=== PATIENT | male | born 1950 | race Caucasian/White ===

== ENCOUNTER → 2018-10-17 | Outpatient (CLI) | payer OTHER, MEDICARE | LOC: BHCLAF 11:00 | PROVIDERS: ATTEND Internal Medicine Cardiovascular Disease | DX: I48.91 Unspecified atrial fibrillation (principal); E03.9 Hypothyroidism, unspecified | CPT/HCPCS: 36415-PO; 84481-90; 93005-PO ==

== ENCOUNTER → 2018-11-03 | Outpatient (CLI) | payer OTHER, MEDICARE | LOC: BHCLAF 14:00 | PROVIDERS: ATTEND Internal Medicine Cardiovascular Disease | DX: I48.91 Unspecified atrial fibrillation (principal) | CPT/HCPCS: 93306-PO ==

== ENCOUNTER 2018-11-08 06:21 | Day surgery (SDC) | payer OTHER, MEDICARE ==
[2018-11-08] MEDS ORDERED: NS 500 ML IV ONE (06:32)
[2018-11-08] MEDS ORDERED: fentaNYL 100 MCG/2 ML INJ IVP ONE (06:32)
[2018-11-08] MEDS ORDERED: BENZOCAINE UNIT DOSE SPRAY HURRICAINE MM ONE (06:32)
[2018-11-08] MEDS ORDERED: MIDAZOLAM 2 MG/2 ML VIAL IVP ONE (06:32)
[2018-11-08] MEDS ORDERED: ATROPINE SULFATE 1 MG/10 ML SYR IVP ONE (06:32)
[2018-11-08 07:03] LABS: INR 2.95 (0.83-1.16); PROTIME(PATIENT) 30.6 SEC (12.0-15.0)
--- NOTE | 2018-11-08 07:56 | PDHPUP ---
History & Physical Update H&P update statement: This history and physical update is based on an assessment of the patient which was completed after admission or registration (within 24 hours), but prior to the surgery/procedure. H&P update: H&P reviewed & patient examined, no change in patient's condition since H&P completed
[2018-11-08] MEDS ORDERED: LIDOCAINE 2% 100 MG/5 ML SYR ONE (08:59)
[2018-11-08] MEDS ORDERED: PROPOFOL 200 MG/20 ML VIAL ONE (08:59)
--- NOTE | 2018-11-08 08:59 | PDANEPAE ---
ANE Past Medical History - Cardiovascular History Hx Hypertension: No Hx Arrhythmias: Yes Hx Chest Pain: No Hx Coronary Artery / Peripheral Vascular Disease: No Hx CHF / Valvular Disease: No Hx Palpitations: Yes Cardiovascular History Comment: cardiomyopathy - Pulmonary History Hx COPD: No Hx Asthma/Reactive Airway Disease: No Hx Recent Upper Respiratory Infection: No Hx Oxygen in Use at Home: No Hx Sleep Apnea: No - Endocrine History Hx Diabetes: No Hypothyroid: Yes Hyperthyroid: No Obesity: no Endocrine History Comment: overwieight ANE Review of Systems Review of Systems: - Exercise capacity Exercise capacity: >=4 METS ANE Patient History - Allergies Allergies/Adverse Reactions: No Known Allergies Allergy (Unverified 11/08/18 06:12) - Home Medications Home Medications: Apixaban [Eliquis] 5 mg PO BID 11/08/18 [Last Taken Unknown] Aspirin EC [Aspirin EC 81 mg (*)] 81 mg PO DAILY 11/08/18 [Last Taken Unknown] Cholecalciferol (Vitamin D3) [Vitamin D3] 2,000 iunits 11/08/18 [Last Taken 05:00] Levothyroxine [Synthroid 25 mcg (*)] 25 mcg PO DAILY06 11/08/18 [Last Taken 05:00] Probenecid [Probenecid 500mg (*)] 11/08/18 [Last Taken 11/08/18 06:00] Rivaroxaban [Xarelto] 20 mg 11/08/18 [Last Taken 11/07/18 18:00] Vardenafil HCl [Levitra] 20 mg PO 11/08/18 [Last Taken Unknown] - Anes Hx Anes Hx: no prior problems - Smoking Hx Smoking Status: Former smoker - Alcohol Use Alcohol Use: Occasionally - Family Anes Hx Family Anes Hx: neg - N/A ANE Labs/Vital Signs - Labs Result Diagrams: 11/08/18 06:45 - Vital Signs Height: 175.26 cm Weight: 83.915 kg ANE Physical Exam - Airway Neck exam: FROM Mallampati Score: Class 2 Mouth exam: normal dental/mouth exam - Pulmonary Pulmonary: no respiratory distress, no rales or rhonchi, clear to auscultation - Cardiovascular Cardiovascular: irregularly irregular - ASA Status ASA Status: III ANE Anesthesia Plan Anesthesia Plan: MAC Total IV Anesthesia: Yes Urgent/Emergent Case: Anes eval completed preop but documented later for safe timely pt care
[2018-11-08] MEDS ORDERED: ATROPINE SULFATE 1 MG/10 ML SYR ONE (09:10)
--- NOTE | 2018-11-08 09:20 | PDTEE1 ---
SHARA Cardioversion Procedure Procedure: electrical cardioversion Indications: atrial fibrillation Consent: signed and in chart Anticoagulation: xarelto Procedural Details: Pads were placed in anterior-posterior position. SHARA probe was advanced and standard images obtained. There is no evidence of left atrial or left atrial appendage thrombus. Synchronized cardioversion attempt #1: 200J Synchronized cardioversion attempt #2: 200J Synchronized cardioversion attempt #3: 300J Results: normal sinus rhythm Conclusions: successful SHARA cardioversion
--- NOTE | 2018-11-08 09:31 | POSTANESTH ---
Post Anesthetic Evaluation Cardiovascular Status: Normal, Stable Respiratory Status: Normal, Stable Level of Consciousness/Mental Status: Can Participate in Eval Pain Control: Adequate, Prn Tx Ordered Nausea/Vomiting Control: Adequate, Prn Tx Ordered Complications Possibly Related to Anesthesia: None Noted
[2018-11-08] MEDS ORDERED: METOPROLOL SUCCINATE XR 25 MG TAB PO SCH (10:30)
--- NOTE | 2018-11-08 11:45 | CPEKG ---
Test Reason : OPEN Blood Pressure : / mmHG Vent. Rate : 075 BPM Atrial Rate : 076 BPM P-R Int : 169 ms QRS Dur : 093 ms QT Int : 405 ms P-R-T Axes : 065 065 030 degrees QTc Int : 453 ms Sinus rhythm Low voltage, extremity leads Nonspecific T abnrm, anterolateral leads Confirmed by Dae Snow ([id number]) on 11/08/2018 11:45:13 AM Referred By: Sanya George Confirmed By:Dae Snow
--- NOTE | 2018-11-08 11:47 | CPEKG ---
Test Reason : OPEN Blood Pressure : / mmHG Vent. Rate : 144 BPM Atrial Rate : 216 BPM P-R Int : 186 ms QRS Dur : 090 ms QT Int : 339 ms P-R-T Axes : 076 074 004 degrees QTc Int : 525 ms Atrial fibrillation Low voltage, extremity leads Prolonged QT interval Confirmed by Dae Snow ([id number]) on 11/08/2018 11:47:10 AM Referred By: Sanya George Confirmed By:Dae Snow
--- NOTE | 2018-11-08 12:00 | ECHO ---
[email or web address] [address] Main: [phone] Fax: Transesophageal Echocardiography Name: SHIRA MCMAHON MR#: [id number] Study Date: 11/08/2018 Study Time: 07:53 AM Date of : 1950 Age: 68 year(s) Height: ( ) Weight: ( ) BSA: Gender: Male Examination: SHARA Indication: pre-cardioversion Image Quality: Adequate Contrast: Requested by: Sanya George Heart Rate: Rhythm: BP: / Procedure Staff Research Animal Attendant: Kathy Owens [facility] Reading Physician: Sanya George MD Requesting Provider: SHARA Exam Details Conclusions: The patient was in atrial fibrillation at the time of the study. Normal size left ventricle. Severely reduced systolic LV function. EF is estimated at 20%. Left atrial enlargement. Small left to right shunt across the interatrial septum noted with color flow Doppler. No thrombus in left appendage. There is mild thickening of the mitral valve leaflets. Moderate mitral valve regurgitation is present. Mild to moderate tricuspid valve regurgitation. Measurements: Chambers Valvular Assessment AV/MV Valvular Assessment TV/PV Normal Normal Normal Name Value Range Name Value Range Name Value Range Visual EF: 20 % Additional Measurements: Findings: Left Ventricle: The patient was in atrial fibrillation at the time of the study. Normal size left ventricle. Severely reduced systolic LV function. The ejection fraction is visually estimated to be 20 %. Left Atrium: Patient: SHIRA MCMAHON Study Date: 11/08/2018 Page 1 of 2 07:53 AM Left atrial enlargement. Small left to right shunt across the interatrial septum noted with color flow Doppler. Left Atrial Appendage: No thrombus in left appendage. Right Atrium: Right atrial enlargement. Mitral Valve: There is mild thickening of the mitral valve leaflets. Moderate mitral valve regurgitation is present. Aortic Valve: The aortic valve is tri-leaflet. There is no aortic valve regurgitation. Tricuspid Valve: Mild to moderate tricuspid valve regurgitation. Pulmonic Valve: Trivial pulmonic valve regurgitation. Pericardium: No pericardial effusion. l1n (No Signature Object) Patient: SHIRA MCMAHON Study Date: 11/08/2018 Page 2 of 2 07:53 AM [id number]
== END 2018-11-08 10:47 | disposition home or self-care (01) ==
LOC: FCATH 06:21
PROVIDERS: ATTEND Internal Medicine Cardiovascular Disease
PROC: 5A2204Z Restoration of Cardiac Rhythm, Single (ICD-10-PCS; principal; 2018-11-08)
DX: I48.91 Unspecified atrial fibrillation (principal)
CPT/HCPCS: J0461; J2001; J2704

== ENCOUNTER 2018-12-18 06:48 | Inpatient (IN) | payer OTHER, MEDICARE ==
[2018-12-18] MEDS ORDERED: fentaNYL 100 MCG/2 ML INJ IVP ONE (06:50)
[2018-12-18] MEDS ORDERED: MIDAZOLAM 2 MG/2 ML VIAL IVP ONE (06:50)
[2018-12-18] MEDS ORDERED: NS 500 ML IV ONE (06:50)
[2018-12-18] MEDS ORDERED: ATROPINE SULFATE 1 MG/10 ML SYR IVP ONE (06:50)
[2018-12-18] MEDS ORDERED: BENZOCAINE UNIT DOSE SPRAY HURRICAINE MM ONE (06:50)
[2018-12-18 07:36] LABS: INR 2.02 (0.83-1.16); PROTIME(PATIENT) 21.9 SEC (12.0-15.0)
[2018-12-18] MEDS ORDERED: PROPOFOL 200 MG/20 ML VIAL ONE (08:14)
--- NOTE | 2018-12-18 08:32 | PDANEPAE ---
ANE History of Present Illness a fib for CV ANE Past Medical History - Cardiovascular History Hx Hypertension: No Hx Arrhythmias: Yes Hx Chest Pain: No Hx Coronary Artery / Peripheral Vascular Disease: No Hx CHF / Valvular Disease: No Hx Palpitations: Yes Cardiovascular History Comment: cardiomyopathy - Pulmonary History Hx COPD: No Hx Asthma/Reactive Airway Disease: No Hx Recent Upper Respiratory Infection: No Hx Oxygen in Use at Home: No Hx Sleep Apnea: No - Endocrine History Hx Diabetes: No Endocrine History Comment: overwieight ANE Review of Systems Review of Systems: ANE Patient History - Allergies Allergies/Adverse Reactions: No Known Allergies Allergy (Unverified 11/08/18 06:12) - Home Medications Home Medications: Cholecalciferol (Vitamin D3) [Vitamin D3] 2,000 iunits PO DAILY 11/08/18 [Last Taken 12/17/18] Levothyroxine [Synthroid 25 mcg (*)] 25 mcg PO DAILY06 11/08/18 [Last Taken ] Probenecid [Probenecid 500mg (*)] 500 mg PO DAILY 11/08/18 [Last Taken 12/17/18] Rivaroxaban [Xarelto] 20 mg PO DAILY 11/08/18 [Last Taken 12/17/18 19:00] Vardenafil HCl [Levitra] 10 mg PO PRN PRN 11/08/18 [Last Taken Unknown] Metoprolol Succinate Xr [Toprol Xl 50 mg (*)] 50 mg PO DAILY 12/18/18 [Last Taken 12/17/18] - Smoking Hx Smoking Status: Former smoker ANE Labs/Vital Signs - Labs Result Diagrams: 12/18/18 07:00 - Vital Signs Height: 175.26 cm Weight: 83.915 kg ANE Physical Exam - Airway Neck exam: FROM Mallampati Score: Class 2 Mouth exam: normal dental/mouth exam - Pulmonary Pulmonary: no respiratory distress - Cardiovascular Cardiovascular: regular rate and rhythym - ASA Status ASA Status: II ANE Anesthesia Plan Anesthesia Plan: GA with mask
[2018-12-18] MEDS ORDERED: VARDENAFIL HCL PO PRN (08:46)
[2018-12-18] MEDS ORDERED: LIDOCAINE/PRILOCAINE 1 EACH CRTUBE TP ONE (08:51)
--- NOTE | 2018-12-18 09:05 | PDCARD ---
Cardioversion Procedure Procedure: electrical cardioversion Indications: atrial fibrillation, cardiomyopathy Consent: signed and in chart Anticoagulation: xarelto Procedural Details: Pads were placed in anterior-posterior position. Synchronized cardioversion attempt #1: 200J Synchronized cardioversion attempt #2: 360J Results: other Conclusions: other (Unsuccessful cardioversion attempt. Patient will be admitted for initiating dofetilide and repeat cardioversion is planned on Tuesday.) Patient Problems: Problems Problem Status Onset Atrial fibrillation Acute
[2018-12-18] MEDS: DOFETILIDE 0.25 MG CAP PO SCH ×2 (09:19→20:42)
--- NOTE | 2018-12-18 09:51 | POSTANESTH ---
Post Anesthetic Evaluation Cardiovascular Status: Normal, Stable Respiratory Status: Normal, Stable Level of Consciousness/Mental Status: Can Participate in Eval, Alert and Oriented Pain Control: Adequate, Prn Tx Ordered Nausea/Vomiting Control: Adequate, Prn Tx Ordered Complications Possibly Related to Anesthesia: None Noted
--- NOTE | 2018-12-18 11:13 | PDMN ---
Medical Necessity Medical necessity: Pt meets IP criteria as of 12/18/2018 per and LINDSE[facility] M-505 ( Afib); est los > 2 mn for tikosyn loading s/p unsuccessful cardioversion for Afib.
[2018-12-18] MEDS ORDERED: METOPROLOL SUCCINATE XR 50 MG TAB PO SCH (11:30)
[2018-12-18] MEDS: CHOLECALCIFEROL VIT D3 2,000 UNITS TAB/CAP PO SCH (13:02)
[2018-12-18] MEDS: PROBENECID 500 MG TAB PO SCH (13:03)
[2018-12-18] MEDS: LEVOTHYROXINE 25 MCG TAB PO SCH (13:03)
[2018-12-18] MEDS: RIVAROXABAN 20 MG TAB PO SCH (17:47)
[2018-12-18] MEDS: METOPROLOL SUCCINATE XR 50 MG TAB PO SCH (17:48)
[2018-12-19] MEDS ORDERED: LEVOTHYROXINE 25 MCG TAB PO SCH (06:00)
[2018-12-19] MEDS: LEVOTHYROXINE 25 MCG TAB PO SCH (06:34)
--- NOTE | 2018-12-19 08:54 | PDCARPN ---
Cardiology Progress Note Chief Complaint: Persistent atrial fibrillation Assessment/Plan: Assessment: 1. Persistent atrial fibrillation of unknown duration: unsuccessful cardioversion yesterday, admitted for Tikosyn loading, converted to NSR around 5 last and has maintained NSR since that time. Cr 1.2. BMP normal. QTc < 500ms. [id number] score = 2, he is anticoagulated with Xarelto 2. CAD 3. Nonischemic cardiomyopathy: LVEF 40-45%, continue Toprol 50mg daily Plan: 1. Continue loading with Tikosyn 250mcg. Repeat 12-lead ECG 2-hours post- administration 2. Continue daily BMP 3. Plan for discharge home tomorrow after 5th dose of Tikosyn and post- administration ECG 12/19/18 08:55 Subjective: No issues overnight, no side effects related to Tikosyn, no cardiovascular concerns this morning Reviewed/Discussed With: multidisciplinary team Time Spent with Patient: greater than 25 minutes Time Spent with Patient: Greater than 25 minutes spent on this patients care, greater than 50% of time spent counseling, educating, and coordinating care regarding the above mentioned plan. Objective: Vital Signs (8 Hrs) Temp Pulse Resp BP Pulse Ox 12/19/18 08:00 36.4 C 67 13 90/53 L 94 12/19/18 03:16 36.6 C 57 L 16 111/59 L 97 Intake/Output (24 Hrs) 12/18/18 12/19/18 12/20/18 05:59 05:59 05:59 Intake Total 1600 Balance 1600 Intake: Oral (ml) 1600 Other: Weight 83.915 kg Number of Voids Toilet 2 Result Diagrams: 12/19/18 03:00 Telemetry: Converted to NSR around midnight and has maintained NSR since that time - Physical Exam Constitutional: WDWN, healthy appearing, no apparent distress Ears, Nose, Mouth, Throat: moist mucous membranes, no oral ulcers, no thrush Cardiovascular: regular rate and rhythm, no murmurs, no rubs, no gallops Peripheral Pulses: 2+: dorsalis-pedis (R), dorsalis-pedis (L) Respiratory: clear to auscultate bilat, no crackles, no wheezes Gastrointestinal: normoactive bowel sounds, no tenderness, no masses Neurologic: AAOx3, CN II-XII grossly intact Psychiatric: cooperative, interactive, following commands, not anxious ICD10 Worksheet Patient Problems: Problems Problem Status Onset Atrial fibrillation Acute
[2018-12-19] MEDS: CHOLECALCIFEROL VIT D3 2,000 UNITS TAB/CAP PO SCH (09:43)
[2018-12-19] MEDS: DOFETILIDE 0.25 MG CAP PO SCH ×2 (09:43→20:49)
[2018-12-19] MEDS: PROBENECID 500 MG TAB PO SCH (09:43)
--- NOTE | 2018-12-19 12:15 | ASMTCMCOM ---
CM Note CM Note Notes: Pt is a 68 y/o man admitted for tikosyn loading. Pt will most likely d/c independent without any needs. No therapies ordered at this time. CM available for changes. Plan: Independent Date Signed: 12/19/2018 12:14 PM Electronically Signed By:DHRUV Yen
[2018-12-19] MEDS: RIVAROXABAN 20 MG TAB PO SCH (18:06)
[2018-12-19] MEDS: METOPROLOL SUCCINATE XR 50 MG TAB PO SCH (18:06)
[2018-12-20] MEDS ORDERED: DOFETILIDE 0.25 MG CAP PO SCH
[2018-12-20] MEDS: LEVOTHYROXINE 25 MCG TAB PO SCH (06:59)
[2018-12-20 07:58] VITALS: BP 111/81
[2018-12-20] MEDS: PROBENECID 500 MG TAB PO SCH (09:22)
[2018-12-20] MEDS: DOFETILIDE 0.25 MG CAP PO SCH (09:22)
[2018-12-20] MEDS: CHOLECALCIFEROL VIT D3 2,000 UNITS TAB/CAP PO SCH (09:22)
--- NOTE | 2018-12-20 12:46 | GDS ---
[f rep st] DISCHARGE SUMMARY ADMISSION DIAGNOSIS: Persistent atrial fibrillation, nonischemic cardiomyopathy DISCHARGE DIAGNOSIS: Persistent atrial fibrillation status post Tikosyn loading , nonischemic cardiomyopathy PROCEDURES PERFORMED DURING HOSPITALIZATION: 1. Electrocardiogram. 2. Echocardiogram. 3. Cardioversion, attempted HOSPITAL COURSE: Patient presented 12/18/2018 for Tikosyn loading in the setting of increasingly frequent and longer episodes of symptomatic atrial fibrillation. He underwent attempted cardioversion 12/18/2018 but was unable to be converted to normal sinus rhythm. He was subsequently started on Tikosyn 250 mcg BID, and he converted to normal sinus rhythm spontaneously after 2 doses. He has maintained normal sinus rhythm with QTc intervals less than 500 msec since that time, and he has had no side effects related to his Tikosyn. His heart rates have been in the low 50s, and his Toprol was decreased to 25 mg daily. He has been up ambulating around his room this morning without issue. He is appropriate and stable for discharge home today. CURRENT PHYSICAL EXAMINATION: GENERAL: Alert and oriented x4. No apparent distress. VITAL SIGNS: Blood pressure 111/81, heart rate 53, respiratory rate 16, SpO2 of 95% on room air, temp 36.5 degrees Celsius. RESPIRATORY: Lungs are clear to auscultation without adventitious breath sounds. CARDIAC: Normal S1, S2. No S3, S4, or murmurs. Rhythm is regular. ABDOMEN: Normoactive bowel sounds times all 4 quadrants. No masses or tenderness. Soft to palpation. SKIN: [place], warm, dry without cyanosis or clubbing. EXTREMITIES: Pulses 2+ bilaterally, no edema. LABORATORY STUDIES: Drawn today, demonstrate normal BMP with a magnesium of 2.0 and a potassium of 4.5. PROCEDURES PERFORMED DURING HOSPITALIZATION: Cardioversion as described above. Echocardiogram completed this hospitalization demonstrates LVEF 55-60%, trivial to mild MR, and trivial TR. Electrocardiogram this morning demonstrates sinus bradycardia with QTc interval measuring 489 msec. DISCHARGE DISPOSITION: Patient will be discharged to home in stable condition. He is not under any activity restrictions. DISCHARGE MEDICATIONS: Please see discharge medication reconciliation sheet for full details. Please note that patient has been started on Tikosyn 250 mcg twice daily and his Toprol has been reduced to 25 mg daily. DISCHARGE INSTRUCTIONS: Tikosyn instructions reviewed with patient in detail. 1. The patient will download the [employer] deepak to check for any drug interactions, should he be prescribed new medications in the future. 2. He verbalizes understanding that if he has any protracted vomiting, diarrhea , or impaired p.o. intake, he will present for urgent medical attention to rule out and/or treat any electrolyte abnormalities in the setting of his new potassium channel thierno. 3. The patient will follow up with [facility] in 3 months for a 12-lead ECG and clinic visit, sooner for any new or concerning symptoms. At the time of discharge, patient verbalizes understanding regarding all discharge instructions without questions or concerns. He will follow up with us in 3 months, sooner for any new or concerning symptoms. Time spent on discharge greater than 30 minutes. /[id number]/MODL MTDD
--- NOTE | 2018-12-21 09:00 | CPEKG ---
Test Reason : OPEN Blood Pressure : / mmHG Vent. Rate : 122 BPM Atrial Rate : 121 BPM P-R Int : 099 ms QRS Dur : 093 ms QT Int : 384 ms P-R-T Axes : 190 069 058 degrees QTc Int : 547 ms Atrial fibrillation Low voltage, extremity leads Nonspecific repol abnormality, diffuse leads Prolonged QT interval Afib is new in comparison to prior Confirmed by Kj De La Cruz ([id number]) on 12/21/2018 9:00:06 AM Referred By: Dae Snow Confirmed By:Kj De La Cruz
--- NOTE | 2018-12-21 09:02 | CPEKG ---
Test Reason : OPEN Blood Pressure : / mmHG Vent. Rate : 075 BPM Atrial Rate : 000 BPM P-R Int : 172 ms QRS Dur : 095 ms QT Int : 491 ms P-R-T Axes : 083 052 -12 degrees QTc Int : 549 ms Atrial fibrillation Low voltage, extremity leads Nonspecific T abnormalities, anterior leads Prolonged QT interval Confirmed by Kj De La Cruz ([id number]) on 12/21/2018 9:01:54 AM Referred By: Dae Snow Confirmed By:Kj De La Cruz
--- NOTE | 2018-12-21 09:04 | CPEKG ---
Test Reason : OPEN Blood Pressure : / mmHG Vent. Rate : 113 BPM Atrial Rate : 000 BPM P-R Int : 180 ms QRS Dur : 086 ms QT Int : 392 ms P-R-T Axes : 256 075 000 degrees QTc Int : 538 ms Atrial fibrillation Prolonged QT interval Similar to prior Confirmed by Kj De La Cruz ([id number]) on 12/21/2018 9:04:00 AM Referred By: Dae Snow Confirmed By:Kj De La Cruz
--- NOTE | 2018-12-21 09:44 | CPEKG ---
Test Reason : OPEN Blood Pressure : / mmHG Vent. Rate : 096 BPM Atrial Rate : 000 BPM P-R Int : 142 ms QRS Dur : 093 ms QT Int : 370 ms P-R-T Axes : 000 081 -88 degrees QTc Int : 468 ms Atrial fibrillation Borderline right axis deviation Nonspecific T abnormalities, diffuse leads Confirmed by Kj De La Cruz ([id number]) on 12/21/2018 9:43:49 AM Referred By: Dae Snow Confirmed By:Kj De La Cruz
--- NOTE | 2018-12-21 09:53 | CPEKG ---
Test Reason : OPEN Blood Pressure : / mmHG Vent. Rate : 055 BPM Atrial Rate : 055 BPM P-R Int : 167 ms QRS Dur : 100 ms QT Int : 511 ms P-R-T Axes : 050 076 087 degrees QTc Int : 489 ms Sinus rhythm Low voltage, extremity leads Nonspecific T abnrm, anterolateral leads Borderline prolonged QT interval sinus rhythm has replaced atrial fibrillation on prior Confirmed by Kj De La Cruz ([id number]) on 12/21/2018 9:53:24 AM Referred By: Dae Snow Confirmed By:Kj De La Cruz
--- NOTE | 2018-12-21 10:06 | CPEKG ---
Test Reason : OPEN Blood Pressure : / mmHG Vent. Rate : 057 BPM Atrial Rate : 056 BPM P-R Int : 178 ms QRS Dur : 104 ms QT Int : 642 ms P-R-T Axes : 058 081 088 degrees QTc Int : 626 ms Sinus rhythm Borderline right axis deviation Abnrm T, consider ischemia, anterolateral lds Prolonged QT interval T wave changes are similar to prior Confirmed by Kj De La Cruz ([id number]) on 12/21/2018 10:05:45 AM Referred By: Dae Snow Confirmed By:Kj De La Cruz
--- NOTE | 2018-12-21 11:18 | CPEKG ---
Test Reason : OPEN Blood Pressure : / mmHG Vent. Rate : 051 BPM Atrial Rate : 051 BPM P-R Int : 176 ms QRS Dur : 093 ms QT Int : 522 ms P-R-T Axes : 053 087 057 degrees QTc Int : 481 ms Sinus rhythm Borderline right axis deviation Nonspecific T abnrm, anterolateral leads Borderline prolonged QT interval Confirmed by Kj De La Cruz ([id number]) on 12/21/2018 11:18:18 AM Referred By: Dae Snow Confirmed By:Kj De La Cruz
--- NOTE | 2018-12-23 11:43 | CPEKG ---
Test Reason : OPEN Blood Pressure : / mmHG Vent. Rate : 085 BPM Atrial Rate : 000 BPM P-R Int : 164 ms QRS Dur : 097 ms QT Int : 461 ms P-R-T Axes : 000 061 008 degrees QTc Int : 549 ms Atrial fibrillation Ventricular premature complex Low voltage, extremity leads Prolonged QT interval Confirmed by Kj De La Cruz ([id number]) on 12/23/2018 11:42:47 AM Referred By: Dae Snow Confirmed By:Kj De La Cruz
== END 2018-12-20 12:30 | disposition home or self-care (01) | DRG 310 ==
LOC: FCATH 06:48 → F2W 08:48
PROVIDERS: ADMIT Internal Medicine Cardiovascular Disease; ATTEND Internal Medicine Cardiovascular Disease
PROC: 5A2204Z Restoration of Cardiac Rhythm, Single (ICD-10-PCS; principal; 2018-12-18)
DX: I48.1 Persistent atrial fibrillation (principal); I25.10 Atherosclerotic heart disease of native coronary artery without angina pectoris; I42.9 Cardiomyopathy, unspecified
CPT/HCPCS: J0461; J2704

== ENCOUNTER → 2018-12-22 | Outpatient (CLI) | payer OTHER, MEDICARE | LOC: BHFA 09:30 | PROVIDERS: ATTEND Internal Medicine Cardiovascular Disease | DX: I48.91 Unspecified atrial fibrillation (principal); I42.9 Cardiomyopathy, unspecified | CPT/HCPCS: 78452; 93017; A9500 ==